=== PATIENT | male | born 1945 | race Caucasian/White ===

== ENCOUNTER 2018-03-25 10:05 | Emergency (ER) | payer MEDICARE, OTHER, SELFPAY ==
[2018-03-25 10:05] VITALS: BP 111/98; PULSE 173; RESP 20; TEMP 36.2; O2SAT 98
[2018-03-25] MEDS: ADENOSINE 6 MG/2 ML VIAL IV (10:16)
[2018-03-25 10:18] VITALS: BP 149/87; PULSE 92; RESP 18; O2SAT 95
[2018-03-25] MEDS: SODIUM CHLORIDE 0.9% 1,000 ML 150 ML IV (10:27)
[2018-03-25 10:28] LABS: Add Manual Diff / Slide Review NO; Basophils Percent Auto 0.7 % (0-2); Eosinophils Percent Auto 2.7 % (2-4); Hematocrit 50.3 % (41-53); Hemoglobin 17.7 g/dL (13.5-17.5); Mean Corpuscular HGB Conc 35.2 % (30-36); Mean Corpuscular Hemoglobin 32.3 PG (26-34); Mean Corpuscular Volume 91.6 fL (80-100); Monocytes Percent Auto 14.2 % (3-14); Neutrophils Absolute Auto 3200 /uL (3000-5900); Neutrophils Percent Auto 55.4 % (50-75); Platelet Count 158 X10^3/uL (150-400); Red Blood Cell Count 5.49 X10^6/uL (4.5-5.9); Red Cell Distribution Width 13.6 % (11.6-14.8); White Blood Cell Count 5.7 X10^3/uL (4.5-11.0)
[2018-03-25 10:33] LABS: Alanine Aminotransferase 25 IU/L (21-72); Albumin 4.5 g/dL (3.5-5.0); Albumin Globulin Ratio 1.5 (1.0-2.8); Alkaline Phosphatase 92 U/L (38-126); Aspartate Aminotransferase 25 IU/L (17-59); Bilirubin Total 1.7 mg/dL (0.2-1.3); Blood Urea Nitrogen 17 mg/dL (9-20); Calcium 9.1 mg/dL (8.4-10.2); Carbon Dioxide 25 mmol/L (22-32); Chloride 101 mmol/L (98-107); Creatine Kinase 106 U/L (55-170); Estimated Glomerular Filt Rate > 60.0 mL/min (>60); Glucose 166 mg/dL (80-110); HEMOLYSIS 15 (0-50); Lipase 166 U/L (23-300); Sodium 138 mmol/L (137-145); Total Protein 7.5 g/dL (6.3-8.2)
[2018-03-25 10:46] VITALS: BP 149/87; PULSE 95; RESP 18; O2SAT 95
[2018-03-25 10:46] LABS: Troponin I < 0.012 ng/mL (0.01-0.034)
--- NOTE | 2018-03-25 10:53 | ED_ITS ---
HPI - Arrhythmia/Palpitations General Chief Complaint: Arrhythmia/Palpitations Stated Complaint: HEART ISSUES Time Seen by Provider: 03/25/18 10:13 Source: patient Mode of arrival: ambulatory Limitations: no limitations History of Present Illness HPI narrative: Patient is a 70-year-old male who presents with heart palpitations. He was out playing pickle ball and the son when he felt his heart going extremely fast. He does have a history of SVT but he has had episodes at least 5 years. He said the EMS people give him a shot and converted him. He denies feeling dizzy or lightheaded he has little short of breath. Denies any other medical history or medications. MD complaint: rapid heart beat Onset (ago): minute(s) Related Data Home Medications Medication Instructions Recorded Confirmed No Known Home Medications 03/25/18 03/25/18 Review of Systems Review of Systems GENERAL: Denies chills, fatigue, malaise, fever, sweats, travel HEENT: Denies sinus pain, ear pain, sore throat, difficulty swallowing, neck pain RESPIRATORY: Denies dyspnea, cough, wheezing, hemoptysis, sputum. CARDIOVASCULAR: See HPI GASTROINTESTINAL: Denies nausea, vomiting, abdominal pain, diarrhea, constipation, melena. : Denies dysuria, frequency, incontinence, hematuria, urinary retention, flank pain. MUSCULOSKELETAL: Denies weakness, joint pain, or bony pain SKIN: No rash, no erythema, no pruritus NEUROLOGIC: Denies weakness, dizziness, headache, numbness, change in speech, confusion PSYCHIATRIC: No concerning psychosocial issues. 12 point review of systems is negative except for those stated above and HPI [facility] Social History Smoking Status: Former smoker Exam Initial Vital Signs Initial Vital Signs: Vital Signs Temperature 97.2 F L 03/25/18 10:05 Pulse Rate 173 H 03/25/18 10:05 Respiratory Rate 20 03/25/18 10:05 Blood Pressure 111/98 H 03/25/18 10:05 Pulse Oximetry 98 03/25/18 10:05 Const General: cooperative and well developed Nutritional Appearance: well nourished Orientation: alert, awake, oriented x3 and not confused Neck Neck: normal visual inspection and No JVD Chest Chest: normal inspection of the chest Resp Effort & Inspection: normal respiratory effort, able to speak in complete sentences, no respiratory distress and no use of accessory muscles Auscultation: clear to auscultation bilaterally, no rales, no rhonchi and no wheezes Cardio Rate: bradycardic Rhythm: regular rhythm Heart Sounds: S1 normal and S2 normal GI Inspection: non-distended Palpation: soft, no hepatosplenomegaly, No guarding, No pulsatile mass and No tender Auscultation: normal bowel sounds Skin General: no rashes or lesions noted, No jaundice and No petechiae Neuro General: alert, oriented x3, gait normal and no focal motor deficits Speech: speech normal Course Orders Ordered: ED Orders 03/25/18 10:10 Complete Blood Count AUTO DIFF Stat Comprehensive Metabolic Panel Stat Lipase Stat Troponin & CK Cardiac Panel Stat 03/25/18 10:21 EKG-12 Lead Stat Discontinued Medications Adenosine (Adenocard) 6 mg IV NOW ONE Stop: 03/25/18 10:06 Last Admin: 03/25/18 10:16 Dose: 6 mg Sodium Chloride (Normal Saline 0.9%) 1,000 mls @ 150 mls/hr IV CONT OLLIE Last Admin: 03/25/18 10:27 Dose: 150 mls/hr Vital Signs - 8 hr 03/25/18 10:46 03/25/18 11:00 03/25/18 11:29 Pulse Rate 95 H 89 89 Respiratory Rate 18 19 16 Blood Pressure [Left Arm] 149/87 H 141/81 H 141/75 H Pulse Oximetry 95 98 98 MDM - Arrhythmia/Palpitations Lab Data Attestation: I reviewed the patient's lab results. Result diagrams: 03/25/18 10:10 03/25/18 10:10 Lab Results 03/25/18 03/25/18 Range/Units 10:10 10:10 WBC 5.7 (4.5-11.0) X10^3/uL RBC 5.49 (4.5-5.9) X10^6/uL Hgb 17.7 H (13.5-17.5) g/dL Hct 50.3 (41-53) % MCV 91.6 (80-100) fL MCH 32.3 (26-34) PG MCHC 35.2 (30-36) % RDW 13.6 (11.6-14.8) % Plt Count 158 (150-400) X10^3/uL Neut % (Auto) 55.4 (50-75) % Lymph % (Auto) 27.0 (25-40) % Dickenson % (Auto) 14.2 H (3-14) % Eos % (Auto) 2.7 (2-4) % Baso % (Auto) 0.7 (0-2) % Neut # (Auto) 3200 (9003-1214) /uL Sodium 138 (137-145) mmol/L Potassium 4.0 (3.4-5.1) mmol/L Chloride 101 (98-107) mmol/L Carbon Dioxide 25 (22-32) mmol/L BUN 17 (9-20) mg/dL Creatinine 1.00 (0.66-1.25) mg/dL Estimated GFR > 60.0 (>60) mL/min BUN/Creatinine Ratio 17.0 (6-22) Glucose 166 H (80-110) mg/dL Calcium 9.1 (8.4-10.2) mg/dL Total Bilirubin 1.7 H (0.2-1.3) mg/dL AST 25 (17-59) IU/L ALT 25 (21-72) IU/L Alkaline Phosphatase 92 (38-126) U/L Total Creatine Kinase 106 (55-170) U/L Troponin I < 0.012 (0.01-0.034) ng/mL Total Protein 7.5 (6.3-8.2) g/dL Albumin 4.5 (3.5-5.0) g/dL Globulin 3.0 (1.7-4.1) g/dL Albumin/Globulin Ratio 1.5 (1.0-2.8) Lipase 166 (23-300) U/L ECG Data Attestation: I personally reviewed and interpreted this ECG as follows: Prior ECG tracings: not available for review Interpretation: EKG 1. SVT rate 169 EKG 2. Rate 92 normal sinus rhythm no ST changes MDM Narrative Medical decision making narrative: The patient has remained in normal sinus rhythm. He is feeling much better. He does have a history of SVT. I recommend he follow up with Cardiology. I discussed all findings with the patient Education has been performed regarding treatment plan, diagnosis, warning signs and symptoms and all concerns have been addressed. Verbally agree with and understood all of the above. Discharge Plan Departure Patient Disposition: Home, Self-Care Clinical Impression: Supraventricular tachycardia Discharge Date/Time: 03/25/18 11:38 Interventions: ED Discharge Assessment Last Done: 03/25/18 11:38 Instructions: Paroxysmal Supraventricular Tachycardia Activity Restrictions/Additional Instructions: *You have been diagnosed with supraventricular tachycardia *What to do: May require of Cardiology evaluation. Increase fluids especially while active an outside *Continue to take medications as directed *Follow up with your primary care provider in 2-3 days *Return to ER if you should have chest pain, heart palpitations or any new, worsening or concerning symptoms Prescriptions: No Action No Known Home Medications RF: 0 Referrals: Jamison Cedeño MD [Physician] - Sandy Veliz PA-C [Family Provider] -
[2018-03-25 11:00] VITALS: BP 141/81; PULSE 89; RESP 19; O2SAT 98
[2018-03-25 11:29] VITALS: BP 141/75; PULSE 89; RESP 16; O2SAT 98
== END 2018-03-25 11:38 | disposition home or self-care (01) ==
PROVIDERS: Emergency Provider Emergency Medicine; Family Provider Physician Assistant
DX: I47.1 Supraventricular tachycardia (principal)
CPT/HCPCS: 36591; 80053; 82550; 82553; 83690; 84484; 85025; 93005; 93041; 96374; 99284; J0153

== ENCOUNTER → 2018-08-15 06:46 | Outpatient (CLI) | payer MEDICARE, OTHER, SELFPAY ==
--- NOTE | 2018-08-15 | DI.US.S_ITS ---
PROCEDURE: US ABDOMEN COMPLETE INDICATIONS: ABDOMINAL PAIN TECHNIQUE: Real-time scanning was performed of the abdominal and retroperitoneal organs, with image documentation. COMPARISON: None. FINDINGS: Liver: Liver is normal in size and increased in echogenicity compatible with fatty infiltration. There is a small anechoic cyst in the left hepatic lobe measuring up to 1.3 cm. Gallbladder: There are a few small echogenic foci along the gallbladder wall without definitive posterior acoustic shadowing. No gallbladder wall thickening, pericholecystic fluid, or sonographic Herndon's sign. Biliary ducts: Intrahepatic bile ducts are non-dilated. Extrahepatic bile duct caliber measures up to 5 mm. Normal is 6-7 mm or less in diameter, or 10 mm or less post-cholecystectomy. Pancreas: Visualized portions of the pancreas are sonographically normal. Spleen: Spleen is normal in size and homogeneous in echotexture. Kidneys: Right kidney measures 11.7 cm long; left kidney measures 12.3 cm long. No hydronephrosis. Aorta: Visualized aorta is normal in caliber at less than 3 cm. Iliacs: Proximal common iliac arteries are normal in caliber at less than 2.5 cm. IVC: Intrahepatic inferior vena cava is patent. Miscellaneous: No free abdominal fluid. IMPRESSION: 1. Small echogenic foci along the gallbladder wall may represent nonobstructing gallstones but given the absence of definitive shadowing differential also includes gallbladder polyps or adenomyomatosis although this is also less likely in the absence of comet tail artifact. 2. Increased hepatic echogenicity compatible with steatosis. A left hepatic lobe simple appearing cyst is noted. Dictated by: Boom Duke M.D. on 08/15/2018 at 11:09 Approved by: Boom Duke M.D. on 08/15/2018 at 11:14
== END ==
PROVIDERS: PCP Internal Medicine; Visit Provider Internal Medicine
DX: R10.9 Unspecified abdominal pain (principal); K76.89 Other specified diseases of liver
CPT/HCPCS: 76700

== ENCOUNTER → 2018-11-18 14:26 | Outpatient (CLI) | payer MEDICARE, OTHER, SELFPAY ==
[2018-11-20 17:30] LABS: HIV Ag/Ab, 4th Gen Nonreactive (Nonreactive)
== END ==
PROVIDERS: PCP Internal Medicine; Visit Provider Internal Medicine
DX: Z11.4 Encounter for screening for human immunodeficiency virus [HIV] (principal)
CPT/HCPCS: 36415; 86703

== ENCOUNTER → 2018-12-01 14:42 | Outpatient (CLI) | payer MEDICARE, OTHER, SELFPAY ==
[2018-12-01 16:24] LABS: Blood Urea Nitrogen 18 mg/dL (9-20); Carbon Dioxide 28 mmol/L (22-32); Chloride 105 mmol/L (98-107); Cholesterol 248 mg/dL (140-199); Glucose 72 mg/dL (80-110); HDL Cholesterol 74 mg/dL (40-60); HEMOLYSIS < 15 (0-50); LDL Cholesterol Calculated 111 mg/dL (<100); Potassium 4.3 mmol/L (3.4-5.1); Sodium 139 mmol/L (137-145); Triglycerides 316 mg/dL (35-150); Uric Acid 7.9 mg/dL (3.5-8.5)
== END ==
PROVIDERS: PCP Internal Medicine; Visit Provider Internal Medicine
DX: M10.00 Idiopathic gout, unspecified site (principal); R03.0 Elevated blood-pressure reading, without diagnosis of hypertension; E66.9 Obesity, unspecified
CPT/HCPCS: 36415; 80048; 80061; 84550

== ENCOUNTER → 2018-12-25 10:47 | Outpatient (CLI) | payer MEDICARE, OTHER, SELFPAY ==
[2018-12-27 14:40] LABS: HIV Ag/Ab, 4th Gen Nonreactive (Nonreactive)
== END ==
PROVIDERS: PCP Internal Medicine; Visit Provider Internal Medicine
DX: Z11.4 Encounter for screening for human immunodeficiency virus [HIV] (principal)
CPT/HCPCS: 36415; 86703

== ENCOUNTER → 2020-02-23 13:04 | Outpatient (CLI) | payer MEDICARE, OTHER, SELFPAY ==
[2020-02-23 14:24] LABS: Free T4, Direct Thyroxine 0.97 ng/dL (0.78-2.19)
[2020-02-23 14:38] LABS: Thyroid Stimulating Hormone 3.57 uIU/mL (0.47-4.68)
[2020-02-23 15:29] LABS: Alanine Aminotransferase 24 IU/L (<50); Albumin 4.2 g/dL (3.5-5.0); Albumin Globulin Ratio 1.4 (1.0-2.8); Alkaline Phosphatase 74 U/L (38-126); Aspartate Aminotransferase 31 IU/L (17-59); BUN Creatinine Ratio 14.6 (6-22); Bilirubin Total 1.4 mg/dL (0.2-1.3); Blood Urea Nitrogen 15 mg/dL (9-20); Calcium 9.4 mg/dL (8.4-10.2); Carbon Dioxide 30 mmol/L (22-32); Chloride 104 mmol/L (98-107); Estimated Glomerular Filt Rate > 60.0 mL/min (>60); Globulin 3.1 g/dL (1.7-4.1); Glucose 103 mg/dL (80-110); HEMOLYSIS < 15 (0-50); Potassium 4.1 mmol/L (3.4-5.1); Sodium 139 mmol/L (137-145); Total Protein 7.3 g/dL (6.3-8.2); Uric Acid 7.4 mg/dL (3.5-8.5)
[2020-02-23 15:39] LABS: Cholesterol 239 mg/dL (140-199); HDL Cholesterol 61 mg/dL (40-60); LDL Cholesterol Calculated 142 mg/dL (<100); Triglycerides 181 mg/dL (35-150)
[2020-02-24 15:36] LABS: Triiodothyronine T3 Total 101 ng/dL (71-180)
== END ==
PROVIDERS: PCP Internal Medicine; Referring Provider Internal Medicine; Visit Provider Internal Medicine
DX: I10 Essential (primary) hypertension (principal); R53.83 Other fatigue; M10.00 Idiopathic gout, unspecified site; E78.2 Mixed hyperlipidemia
CPT/HCPCS: 36415; 80053; 80061; 84439; 84443; 84480; 84550

== ENCOUNTER → 2020-03-22 14:03 | Outpatient (CLI) | payer MEDICARE, OTHER, SELFPAY ==
[2020-03-23 08:23] LABS: COVID19 Sendout Not Detected (Not Detect)
== END ==
PROVIDERS: PCP Internal Medicine; Visit Provider Physician Assistant
DX: Z01.812 Encounter for preprocedural laboratory examination (principal)
CPT/HCPCS: 87635

== ENCOUNTER → 2020-03-25 07:51 | Outpatient (CLI) | payer MEDICARE, OTHER, SELFPAY | PROVIDERS: PCP Internal Medicine; Referring Provider Internal Medicine; Visit Provider Internal Medicine | DX: R07.9 Chest pain, unspecified (principal) | CPT/HCPCS: 93017 ==

== ENCOUNTER → 2020-08-26 18:45 | Outpatient (ROUT) | payer MEDICARE, OTHER, SELFPAY ==
[2020-08-26 19:19] LABS: Hemoglobin A1C% w Est Avg Glu 5.5 % (4.0-6.0)
[2020-08-26 19:21] LABS: Bilirubin Direct 0.2 mg/dL (0.0-0.4); Bilirubin Indirect 1.3 mg/dL (0.0-1.1); Bilirubin Total 1.5 mg/dL (0.2-1.3); Cholesterol 199 mg/dL (140-199); Glucose 124 mg/dL (80-110); HDL Cholesterol 61 mg/dL (40-60); LDL Cholesterol Calculated 90 mg/dL (<100); Lactate Dehydrogenase 505 U/L (313-618); Triglycerides 239 mg/dL (35-150); Uric Acid 7.9 mg/dL (3.5-8.5)
[2020-08-29 11:10] LABS: HSV 2 IGG AB 2.45 index (0.00-0.90)
== END ==
PROVIDERS: PCP Internal Medicine; Visit Provider Internal Medicine
DX: E78.2 Mixed hyperlipidemia (principal); B00.9 Herpesviral infection, unspecified; R73.9 Hyperglycemia, unspecified; R17 Unspecified jaundice; M10.9 Gout, unspecified
CPT/HCPCS: 80061; 82247; 82248; 82947; 83036; 83615; 84550; 86695; 86696

== ENCOUNTER → 2020-11-21 10:30 | Outpatient (CLI) | payer MEDICARE, OTHER, SELFPAY ==
--- NOTE | 2020-11-21 | DI.RAD.S_ITS ---
PROCEDURE: XR CHEST 2V INDICATIONS: ACUTE BACK PAIN/MEJIA TECHNIQUE: 2 views of the chest were acquired. COMPARISON: None. FINDINGS: Surgical changes and devices: None. Lungs and pleura: Lungs are clear. No pleural effusions or pneumothorax. Mediastinum: Mediastinal contours are normal. Heart size is normal. Bones and chest wall: No suspicious bony abnormalities. Soft tissues appear unremarkable. IMPRESSION: No acute disease. Dictated by: Mohinder Naik M.D. on 11/21/2020 at 11:55 Approved by: Mohinder Naik M.D. on 11/21/2020 at 11:57
--- NOTE | 2020-11-21 | DI.RAD.S_ITS ---
PROCEDURE: XR LUMBAR SPINE 2-3V INDICATIONS: ACUTE BACK PAIN/MEJIA TECHNIQUE: 3 views of the lumbar spine were acquired. COMPARISON: None. FINDINGS: Bones: No acute fracture identified although advanced spondylitic changes decreases exam sensitivity. Multilevel degenerative endplate sclerosis and spurring. Diffuse facet arthropathy. Diffuse moderate disc space narrowing, most pronounced at L4-L5 and L5-S1. Levoscoliosis noted. Soft tissues: Overlying bowel gas pattern is normal. No suspicious soft tissue calcifications. Scattered vascular calcifications seen in the aorta. IMPRESSION: Severe multilevel lumbar spondylosis and facet arthropathy Levoscoliosis Dictated by: Mohinder Naik M.D. on 11/21/2020 at 11:57 Approved by: Mohinder Naik M.D. on 11/21/2020 at 11:59
--- NOTE | 2020-11-21 | DI.RAD.S_ITS ---
PROCEDURE: XR THORACIC SPINE 3V INDICATIONS: BACK PAIN TECHNIQUE: 3 views of the thoracic spine were acquired. COMPARISON: None. FINDINGS: Bones: No fracture identified. Multilevel degenerative endplate sclerosis and spurring. Diffuse facet arthropathy. Extensive anterior spinal ossification is seen and bridging osteophytes. There is mild diffuse disc space narrowing. There is lateral curvature of the spine, partially visualized. Soft tissues: No paravertebral stripe thickening. IMPRESSION: Diffuse spondylosis and prominent spinal ossification raising possibility of DISH (diffuse idiopathic skeletal hyperostosis) Dictated by: Mohinder Naik M.D. on 11/21/2020 at 11:59 Approved by: Mohinder Naik M.D. on 11/21/2020 at 12:09
== END ==
PROVIDERS: PCP Student in an Organized Health Care Education/Training Program; Referring Provider Student in an Organized Health Care Education/Training Program; Visit Provider Student in an Organized Health Care Education/Training Program
DX: M54.6 Pain in thoracic spine (principal); R06.00 Dyspnea, unspecified; M47.814 Spondylosis without myelopathy or radiculopathy, thoracic region; M47.816 Spondylosis without myelopathy or radiculopathy, lumbar region; M41.9 Scoliosis, unspecified
CPT/HCPCS: 71046; 72072; 72100

== ENCOUNTER → 2020-11-25 11:26 | Outpatient (CLI) | payer MEDICARE, OTHER, SELFPAY ==
--- NOTE | 2020-11-25 | DI.RAD.S_ITS ---
PROCEDURE: XR HIP W PEL IF DONE RT 2V INDICATIONS: Pain in right hip TECHNIQUE: AP pelvis with lateral view(s) of the right hip(s). COMPARISON: None. FINDINGS: Bones: No fractures or dislocations. Pelvic ring appears intact. No suspicious bony lesions. Mild bilateral hip osseous hypertrophy compatible with mild osteoarthritis. Mild lower lumbar spine degenerative disc disease. Soft tissues: The visualized bowel gas pattern is normal. No suspicious soft tissue calcifications. IMPRESSION: 1. Mild bilateral hip osteoarthritis. 2. No fracture. No acute osseous lesion. If symptoms and/or clinical suspicion for pathology persists, further assessment with repeat radiographs (7-10 days) or advanced imaging (e.g. CT, MRI or bone scan) should be considered. Dictated by: Carmenza Banegas MD, PhD on 11/25/2020 at 12:45 Approved by: Carmenza Banegas MD, PhD on 11/25/2020 at 12:51
== END ==
PROVIDERS: PCP Student in an Organized Health Care Education/Training Program; Referring Provider Student in an Organized Health Care Education/Training Program; Visit Provider Student in an Organized Health Care Education/Training Program
DX: M16.0 Bilateral primary osteoarthritis of hip (principal)
CPT/HCPCS: 73502

== ENCOUNTER → 2020-12-15 14:59 | Outpatient (ROUT) | payer MEDICARE, OTHER, SELFPAY ==
[2020-12-15 15:52] LABS: Add Manual Diff / Slide Review NO; Basophils Absolute Auto 0 /uL (0-100); Eosinophils Absolute Auto 200 /uL (0-450); Eosinophils Percent Auto 4.1 % (2-4); Hematocrit 45.6 % (41-53); Hemoglobin 15.5 g/dL (13.5-17.5); Lymphocytes Absolute Auto 1300 /uL (1100-4500); Lymphocytes Percent Auto 25.7 % (25-40); Mean Corpuscular Hemoglobin 31.9 PG (26-34); Mean Corpuscular Volume 93.6 fL (80-100); Monocytes Absolute Auto 600 /uL (0-900); Monocytes Percent Auto 11.6 % (3-14); Neutrophils Absolute Auto 2900 /uL (1500-7000); Neutrophils Percent Auto 57.6 % (50-75); Platelet Count 156 X10^3/uL (150-400); Red Blood Cell Count 4.87 X10^6/uL (4.5-5.9); Red Cell Distribution Width 14.1 % (11.6-14.8)
[2020-12-15 16:05] LABS: Alanine Aminotransferase 28 IU/L (<50); Albumin 3.9 g/dL (3.5-5.0); Albumin Globulin Ratio 1.6 (1.0-2.8); Alkaline Phosphatase 82 U/L (38-126); Aspartate Aminotransferase 31 IU/L (17-59); BUN Creatinine Ratio 14.9 (6-22); Bilirubin Total 1.3 mg/dL (0.2-1.3); Blood Urea Nitrogen 13 mg/dL (9-20); Calcium 9.1 mg/dL (8.4-10.2); Carbon Dioxide 30 mmol/L (22-32); Chloride 105 mmol/L (98-107); Cholesterol 163 mg/dL (140-199); Estimated Glomerular Filt Rate > 60.0 mL/min (>60); Globulin 2.5 g/dL (1.7-4.1); Glucose 102 mg/dL (80-110); HDL Cholesterol 50 mg/dL (40-60); HEMOLYSIS < 15 (0-50); LDL Cholesterol Calculated 91 mg/dL (<100); Potassium 4.3 mmol/L (3.4-5.1); Sodium 140 mmol/L (137-145); Total Protein 6.4 g/dL (6.3-8.2); Triglycerides 112 mg/dL (35-150); Uric Acid 6.8 mg/dL (3.5-8.5)
== END ==
PROVIDERS: PCP Student in an Organized Health Care Education/Training Program; Visit Provider Student in an Organized Health Care Education/Training Program
DX: I10 Essential (primary) hypertension (principal)
CPT/HCPCS: 80053; 80061; 84550; 85025

== ENCOUNTER 2022-01-14 10:46 | Emergency (ER) | payer MEDICARE, OTHER, SELFPAY ==
--- NOTE | 2022-01-14 10:55 | DI.MRI.S_ITS ---
PROCEDURE: MR LUMBAR SPINE WO CON INDICATIONS: severe pain down R leg with weakness TECHNIQUE: Noncontrast sagittal T1 spin echo and T2 fast echo, sagittal STIR, and T2 fast spin echo through the lumbar spine. In cases with scoliosis, additional coronal T2 fast spin echo may be performed. COMPARISON: CR, L-SPINE 2-3 VIEWS, 04/21/2010, 13:03. [facility], CR, XR LUMBAR SPINE 2-3V, 11/21/2020, 10:46. FINDINGS: Image quality: Excellent. Alignment and Curvature: There is grade 1 anterolisthesis of L3 on L4 and L4 on L5, and grade 1 retrolisthesis of L5 on S1. Bone Marrow: Marrow is of normal overall signal. No acute vertebral body compression fractures. Spinal Cord: Conus medullaris terminates at the L1 level. Visualized cord demonstrates normal signal and size. Paraspinous Soft Tissues: No paravertebral masses. T12-L1: Preserved disc height. Moderate disc desiccation. Mild posterior disc bulge. No central canal or foraminal stenosis. L1-L2: Preserved disc height. Moderate disc desiccation. Mild posterior disc bulge. No central canal or foraminal stenosis. L2-L3: Preserved disc height. Mild disc desiccation and minimal posterior disc bulge. No central canal or foraminal stenosis. L3-L4: Mild loss disc height and disc desiccation. There is diffuse posterior disc bulge. There is posterior central and right paramedian disc protrusion. Moderate bilateral facet arthropathy and hypertrophy of ligamentum flavum. The central canal is severely narrowed. Severe narrowing of the right lateral recess. Moderate right and mild left foraminal stenosis. L4-L5: Severe loss of disc height and disc desiccation. There is diffuse posterior disc bulge and posterior disc osteophyte complex. Moderate bilateral facet arthropathy and hypertrophy of ligamentum flavum. The central canal is moderately narrowed. Moderate narrowing of lateral recess bilaterally. There is moderate bilateral foraminal stenosis. L5-S1: Severe loss of disc height and disc desiccation. There is diffuse posterior disc bulge and posterior disc osteophyte complex. There is a small posterior central annular fissure. Mild bilateral facet arthropathy and hypertrophy. The central canal is mildly narrowed. Moderate narrowing of lateral recess bilaterally. There is moderate bilateral foraminal stenosis. IMPRESSION: 1. Multilevel degenerative disc disease and facet arthropathy as described. 2. Severe central canal stenosis at L3-L4, caused by posterior and right paramedian disc extrusion. There is moderate central canal stenosis at L4-L5 and mild central canal stenosis at L5-S1. 3. Multilevel bilateral foraminal stenoses as described. Dictated by: Ken Ramirez M.D. on 01/14/2022 at 10:59 Approved by: Ken Ramirez M.D. on 01/14/2022 at 11:09
--- NOTE | 2022-01-14 11:04 | ED.BACK ---
HPI - Back Pain/Injury General Chief Complaint: Extremity Problem,Nontraumatic Stated Complaint: Sharp pain in rt leg- weakness x 3 days Time Seen by Provider: 01/14/22 10:51 History of Present Illness HPI Narrative: 76-year-old male nonsmoker with history of hypertension presents with chief complaint of sudden onset severe right leg pain after bending over few days ago, the pain starts in his low back and radiates down his leg and he now has weakness in his leg and feels like it will give out on him when he walks. He denies any numbness or tingling. He does have an extensive history of back issues but no prior surgeries or MRIs that are known. He denies loss of bowel or bladder control, he denies fever or chills nor the use of blood thinners. He denies any obvious trauma and states the pain started when he bent over. He is otherwise well and free of complaint. He denies chest pain, shortness of breath or cough. He has had no runny nose or sore throat. He denies any abdominal pain, nausea or vomiting. Related Data Home Medications Medication Instructions Recorded Confirmed lisinopril 10 mg tablet 10 mg PO DAILY 06/17/20 06/23/20 Previous Rx's Medication Instructions Recorded gabapentin 300 mg capsule 300 mg PO BEDTIME #14 cap 01/14/22 ketorolac 10 mg tablet 10 mg PO Q6H PRN #14 tab 01/14/22 methylprednisolone 4 mg tablets in See Rx Instructions .ROUTE 01/14/22 a dose pack (Medrol (Rayshawn)) .COMPLEX #21 ea oxycodone 5 mg tablet 5 mg PO Q4-6H PRN #10 tab 01/14/22 Allergies Allergy/AdvReac Type Severity Reaction Status Date / Time No Known Drug Allergies Allergy Verified 01/14/22 11:08 Review of Systems Review of Systems Narrative: GENERAL: Denies chills, fatigue, malaise, fever, sweats. HEENT: Denies sinus pain, ear pain, sore throat, difficulty swallowing, dizziness. RESPIRATORY: Denies dyspnea, cough, wheezing, hemoptysis, sputum. CARDIOVASCULAR: Denies chest pain, palpitations, orthopnea, edema, GASTROINTESTINAL: Denies nausea, vomiting, abdominal pain, diarrhea, constipation, melena. : Denies dysuria, frequency, incontinence, hematuria, urinary retention. MUSCULOSKELETAL: See HPI SKIN: Denies rash, skin lesions, or other NEUROLOGIC: See HPI PSYCHIATRIC: No concerning psychosocial issues. 12 point review of systems is negative except for those stated above Patient History Medical History High blood pressure Lower urinary tract symptoms (LUTS) Surgical History H/O circumcision H/O vasectomy Social History Smoking Status: Never smoker Smoking Status: Never smoker alcohol intake frequency: 0-2 drinks per day Substance Use Type: does not use Exam Narrative Exam Narrative: GENERAL: [76] year old patient appears stated age. Well-developed patient, in mild distress. HEAD: Atraumatic. Normocephalic. EYES: Pupils equal round and reactive. Extraocular motions intact. No scleral icterus. No injection or drainage. ENT: Nose without bleeding, purulent drainage. Throat without erythema, tonsillar hypertrophy or exudate. Airway patent. NECK: Trachea midline. Non tender CARDIOVASCULAR: Regular rate and rhythm without murmurs, gallops, or rubs. RESPIRATORY: Clear to auscultation. Breath sounds equal bilaterally. No wheezes, rales, or rhonchi. GASTROINTESTINAL: Abdomen soft, non-tender, nondistended. EXTREMITIES: No edema or joint tenderness. BACK: slasher tender but free of any obvious external abnormalities. Patient exam notes decreased range of motion and muscle spasm, but no CVA tenderness, or vertebral point tenderness. There is no saddle anesthesia noted, right lower extremity with 4/5 strength in hip flexors, left 5/5. No sensory deficit. Right patellar reflex 1+, left patellar reflex 2+ NEURO: AOx3. SKIN: No rash or erythema of visible areas Initial Vital Signs Initial Vital Signs: Vital Signs Temperature 97.8 F 01/14/22 11:08 Pulse Rate 77 01/14/22 11:08 Respiratory Rate 18 01/14/22 11:08 Blood Pressure 153/78 H 01/14/22 11:08 Pulse Oximetry 98 01/14/22 11:08 Course Orders Ordered: ED Orders 01/14/22 10:55 MR lumbar spine wo con Stat Vital Signs Vital signs: Vital Signs - 8 hr 01/14/22 11:08 Temperature 97.8 F Pulse Rate 77 Respiratory Rate 18 Blood Pressure 153/78 H Pulse Oximetry 98 MDM - Back Pain/Injury Imaging Data MRI Lumbar: Radiologist's Impression: Launch?Image [address] [id number] Magnetic Resonance Report Signed Patient: Juan Gómez MR#: [id number] : 1945 Acct:[id number] Age/Sex: 76 / M Date of Service: 01/14/22 Loc: ED Accession Number: [id number] ?? Procedure: MR lumbar spine wo con Ordering Provider: Maximo Macedo D.O. PROCEDURE:? MR LUMBAR SPINE WO CON ? INDICATIONS:? severe pain down R leg with weakness ? TECHNIQUE:? Noncontrast sagittal T1 spin echo and T2 fast echo, sagittal STIR, and T2 fast spin echo through the lumbar spine.? In cases with scoliosis, additional coronal T2 fast spin echo may be performed.? ? COMPARISON:? CR, L-SPINE 2-3 VIEWS, 04/21/2010, 13:03.? [facility], CR, XR LUMBAR SPINE 2-3V, 11/21/2020, 10:46. ? FINDINGS:? Image quality:? Excellent.? ? Alignment and Curvature:? There is grade 1 anterolisthesis of L3 on L4 and L4 on L5, and grade 1 retrolisthesis of L5 on S1.? ? Bone Marrow:? Marrow is of normal overall signal.? No acute vertebral body compression fractures.? ? Spinal Cord:? Conus medullaris terminates at the L1 level.? Visualized cord demonstrates normal signal and size.? ? Paraspinous Soft Tissues:? No paravertebral masses.? ? T12-L1:? Preserved disc height.? Moderate disc desiccation.? Mild posterior disc bulge.? No central canal or foraminal stenosis.? ? L1-L2:? Preserved disc height.? Moderate disc desiccation.? Mild posterior disc bulge.? No central canal or foraminal stenosis.? ? L2-L3:? Preserved disc height.? Mild disc desiccation and minimal posterior disc bulge.? No central canal or foraminal stenosis.? ? L3-L4:? Mild loss disc height and disc desiccation.? There is diffuse posterior disc bulge.? There is posterior central and right paramedian disc protrusion.? Moderate bilateral facet arthropathy and hypertrophy of ligamentum flavum.? The central canal is severely narrowed.? Severe narrowing of the right lateral recess.? Moderate right and mild left? foraminal stenosis. ? L4-L5:? Severe loss of disc height and disc desiccation.? There is diffuse posterior disc bulge and posterior disc osteophyte complex.? Moderate bilateral facet arthropathy and hypertrophy of ligamentum flavum.? The central canal is moderately narrowed.? Moderate narrowing of lateral recess bilaterally.? There is moderate bilateral foraminal stenosis. ? L5-S1:? Severe loss of disc height and disc desiccation.? There is diffuse posterior disc bulge and posterior disc osteophyte complex.? There is a small posterior central annular fissure.? Mild bilateral facet arthropathy and hypertrophy.? The central canal is mildly narrowed.? Moderate narrowing of lateral recess bilaterally.? There is moderate bilateral foraminal stenosis. ? ? IMPRESSION:? ? 1. Multilevel degenerative disc disease and facet arthropathy as described. ? 2. Severe central canal stenosis at L3-L4, caused by posterior and right paramedian disc extrusion.? There is moderate central canal stenosis at L4-L5 and mild central canal stenosis at L5-S1. ? 3. Multilevel bilateral foraminal stenoses as described. ? ? ? Dictated by: Ken Ramirez M.D. on 01/14/2022 at 10:59 ? ? Approved by: Ken Ramirez M.D. on 01/14/2022 at 11:09 ? MDM Narrative Medical decision making narrative: Multiple etiologies of back pain considered including; Epidural abscess, cauda equina, mass occupying lesion, and other considered, however no red flag indications of the need for neuro surgical intervention are present. MRI is reassuring. Patient is able to ambulate through the department without significant difficulty Discharge Plan Departure Patient Disposition: Home Clinical Impression: Lumbar radiculopathy, acute Instructions: Lumbar Radiculopathy Activity Restrictions/Additional Instructions: *You have been diagnosed with [acute right-sided lumbar radiculopathy] *What to do: *Please continue to take your regular medications as directed. [x ] New medication prescriptions sent to your pharmacy: [[facility] ] [ ] New medication written as a paper prescription [ ] No new medications given *Please follow up with Dr. Thacker at [facility], call tomorrow for an appointment. *Return to Emergency Department if you should have any new, worsening or concerning symptoms You have been prescribed a short course of narcotic medications. These are potentially dangerous and addictive medications that should be used carefully. While on these medications you cannot drive or operate heavy machinery. Additionally, you cannot sign legal documents or perform any duties such as this. Many people get constipated on narcotic medications so it would be advisable to discuss stool softeners with the pharmacist when you pick remover your prescription. Please understand that we cannot provide further refills of narcotics or controlled substances through the ED and your pain management will need to be through your Primary Care Provider Prescriptions: New ketorolac 10 mg tablet 10 mg PO Q6H PRN (Reason: pain) Qty: 14 0RF gabapentin 300 mg capsule 300 mg PO BEDTIME Qty: 14 0RF methylprednisolone [Medrol (Rayshawn)] 4 mg tablets,dose pack See Rx Instructions .ROUTE .COMPLEX Qty: 21 0RF Rx Instructions: orally per package directions oxycodone 5 mg tablet 5 mg PO Q4-6H PRN (Reason: pain) Qty: 10 0RF No Action lisinopril 10 mg tablet 10 mg PO DAILY 0RF Referrals: José Perez MD [Primary Care Provider] - Sreedhar Thacker MD [Physician] - Samantha Gamez [Non-Staff] -
[2022-01-14 11:08] VITALS: BP 153/78; PULSE 77; RESP 18; TEMP 36.6; O2SAT 98; BMI 29.7
--- NOTE | 2022-01-14 12:46 | PC.NURSE ---
lower back pain. assessed by MD without RN involvement
== END 2022-01-14 12:47 | disposition home or self-care (01) ==
PROVIDERS: Emergency Provider Emergency Medicine; PCP Internal Medicine
DX: M54.50 Low back pain, unspecified (principal); M54.16 Radiculopathy, lumbar region
CPT/HCPCS: 72148; 99283